=== PATIENT | male | born 2000 | race Caucasian/White ===

== ENCOUNTER 2020-06-29 15:32 | Emergency (ER) | payer OTHER, SELFPAY ==
--- NOTE | ~2020-06-29 | XR_ITS ---
EXAMINATION: XR wrist LT min 3V DATE: 06/29/2020 15:58 INDICATION: Lateral left wrist pain post fall TECHNIQUE: Posteroanterior, ulnar deviation, oblique, and lateral views of the left wrist were obtain ed. COMPARISON: none FINDINGS: 3 mm ulnar minus variance. Alignment is otherwise normal. No fracture. Joint spaces are normal. Soft tissues are unremarkable. IMPRESSION: 1. No acute osseous abnormality. Reviewed, dictated and finalized at location B.
[2020-06-29 15:40] VITALS: BP 153/83; PULSE 85; RESP 18; TEMP 36.6; O2SAT 100
--- NOTE | 2020-06-29 15:47 | ED.UPPEXIN ---
HPI - Extremity Injury (Upper) General Chief Complaint: Extremity Injury, Upper Stated Complaint: lt wrist injury Time Seen by Provider: 06/29/20 15:47 Source: patient and RN notes reviewed Mode of arrival: ambulatory Limitations: no limitations History of Present Illness HPI narrative: 19 year old male who presents to [facility] with complaints of injury to his left wrist which occurred on Monday.Patient states that he fell off the tailgate of his friend's truck and tried to break his fall with his left hand and now has pain to the radial aspect of his left wrist with mild swelling to radial side also. Patient states increase pain with movement of left hand, denies any tingling or numbness to left fingers with good left radial pulse. MD complaint: injury to: wrist (left) Onset (ago): day(s) (2 days) Other Extremity Injury: Left: wrist Other injuries: none Handedness: right Place: outdoors Severity: moderate Severity scale (1-10): 7 Relieving factors: rest Exacerbating factors: movement of extremity Context: fall Associated symptoms: denies other symptoms Treatments prior to arrival: NSAIDS Related Data Home Medications Medication Instructions Recorded Confirmed No Home Medications 06/29/20 06/29/20 Allergies Allergy/AdvReac Type Severity Reaction Status Date / Time No Known Allergies Allergy Mild Verified 06/29/20 15:45 Review of Systems Review of Systems: Narrative: CONSTITUTIONAL: Denies fever, chills, or sweats. EYES: Denies visual changes, redness, or discharge. ENT: Denies rhinorrhea, congestion, sore throat, or otalgia. CARDIOVASCULAR: Denies chest pain, palpitations, or edema. RESPIRATORY: Denies cough or dyspnea. GASTROINTESTINAL: Denies abdominal pain, nausea, vomiting, or diarrhea. GENITOURINARY: Denies dysuria or hematuria. SKIN: Denies rash or itching. MUSCULOSKELETAL: Denies back pain, positive for left wrist pain radial side joint pain, or myalgia. NEUROLOGIC: Denies headache, numbness, or weakness. PSYCHIATRIC: Denies anxiety or depression. All systems reviewed & are unremarkable except as noted in HPI and below PMFSH Past Medical History Medical History (Updated 06/30/20 @ 00:01 by Sandra Roe) History of strep sore throat Surgical History Surgical History H/O knee surgery Social History Social History (Updated 06/29/20 @ 16:05 by Chiqui Morales NP) Smoking status: Current some day smoker Tobacco type: cigarettes and e-cigarettes/vaping Alcohol intake: never Substance use: unknown Living arrangements: with roommate(s) Occupation/Education: student Additional occupation/education comments: floor installation Gender identity (if verbalized by the patient): Male Comments At time of signature, agree with nursing past medical, surgical, social history. There is no relevant family history pertinent to the presenting complaint Exam Narrative: Exam Narrative: GENERAL: Well-appearing, well-nourished, and in no acute distress. HEAD: Normocephalic, atraumatic. EYES: PERRLA and EOMI. ENT: Nares clear, no rhinorrhea or epistaxis. Mucous membranes moist. NECK: Supple. CHEST: Clear to auscultation. No respiratory distress.SAO2 100% on room air HEART: Regular rate and rhythm. No murmur heard. Normal peripheral pulses. ABDOMEN: Soft, nontender, nondistended, normal active bowel sounds. EXTREMITIES: Painful range of motion with mild edema radial side of left wrist, strong left radial pulse, nail beds dulce briskly. full ROM of fingers denies any tingling or numbness. SKIN: Warm, dry, no rash. NEURO: No focal deficits. Alert and oriented x3. Course Vital Signs Vital signs: Vital Signs Temperature 36.6 C 06/29/20 15:40 Pulse Rate 85 06/29/20 15:40 Respiratory Rate 18 06/29/20 15:40 Blood Pressure 153/83 H 06/29/20 15:40 Pulse Oximetry 100 06/29/20 15:40 Temperature 36.6 C 06/29/20 15
== END 2020-06-29 16:24 | disposition home or self-care (01) ==
PROVIDERS: Emergency Provider Registered Nurse; PCP Pediatrics
DX: S63.502A Unspecified sprain of left wrist, initial encounter (principal); S66.912A Strain of unspecified muscle, fascia and tendon at wrist and hand level, left hand, initial encounter; W17.89XA Other fall from one level to another, initial encounter; F17.210 Nicotine dependence, cigarettes, uncomplicated
CPT/HCPCS: 73110; 99213; G0463

== ENCOUNTER 2022-04-06 16:50 | Emergency (ER) | payer OTHER, SELFPAY ==
--- NOTE | ~2022-04-06 | XR_ITS ---
EXAMINATION: XR chest 2V Exam Date/Time: 04/06/2022 17:25 CDT HISTORY: chest pain SINCE LASTNIGHT, HX AFIB, SOB Comparison: None available. RESULT: Lines, tubes, and devices: None. Lungs and pleura: Clear. Cardiomediastinal silhouette: Normal cardiomediastinal silhouette. Other: No acute osseous or upper abdominal finding. IMPRESSION: No acute cardiopulmonary process. Reviewed, dictated and finalized at location K.
--- NOTE | 2022-04-06 16:55 | ECG_ITS ---
Measurements Intervals [place] Rate: 89 P: -5 ID: 135 QRS: 99 QRSD: 116 T: 26 QT: 348 QTc: 426 Interpretive Statements SINUS RHYTHM BORDERLINE RIGHT AXIS DEVIATION [QRS AXIS > 90] NONSPECIFIC ST AND T-WAVE CHANGE MODERATE INTRAVENTRICULAR CONDUCTION DELAY [110+ ms QRS DURATION] NO PREVIOUS ECG AVAILABLE FOR COMPARISON Electronically Signed On 04-06-2022 22:19:46 CDT by Sabiha Villarreal M.D.
[2022-04-06 16:59] VITALS: BP 159/104; PULSE 101; RESP 20; TEMP 36.9; O2SAT 100
[2022-04-06 17:13] LABS: Basophils Percent Auto 0.4 % (0.2-1.2); Eosinophils Percent Auto 0.2 % (0-4.4); Hematocrit 49.4 % (42.0-52.0); Hemoglobin 16.9 g/dL (14.0-18.0); Immature Granulocyte Absolute 0.05 K/mm3 (0.00-0.031); Immature Granulocyte Percent A 0.5 % (0-0.5); Lymphocytes Absolute Auto 1.88 K/mm3 (0.9-3.2); Lymphocytes Percent Auto 17.2 % (18.3-44.2); Mean Corpuscular HGB Conc 34.2 g/dl (32-36); Mean Corpuscular Hemoglobin 31.4 pg (26-34); Mean Corpuscular Volume 91.7 fl (80-100); Mean Platelet Volume 9.8 fl (7.4-10.4); Monocytes Absolute Auto 0.7 K/mm3 (0.1-0.6); Monocytes Percent Auto 6.6 % (2.6-8.5); Neutrophils Absolute Auto 8.2 K/mm3 (1.3-6.7); Neutrophils Percent Auto 75.1 % (45.5-73.1); Platelet Count Result 271 k/mm3 (150-375); Red Blood Count 5.39 M/mm3 (4.6-6.20); White Blood Count 10.9 K/mm3 (4.5-10.0)
[2022-04-06 17:26] LABS: Alanine Aminotransferase 29 U/L (6-50); Albumin Level 5.5 g/dL (3.5-5.1); Alkaline Phosphatase 95 U/L (38-126); Anion Gap 10 mmol/L (8-16); Aspartate Amino Transferase 33 U/L (17-59); Bilirubin,Total 1.7 mg/dL (0.2-1.3); Blood Urea Nitrogen 16 mg/dL (9-20); Calcium 9.5 mg/dL (8.4-10.2); Carbon Dioxide 24 mmol/L (22-30); Chloride 103 mmol/L (98-107); Estimated CRCL calculation 114 ml/min; Estimated Glomerular Filt Rate > 60; Glucose 125 mg/dL (65-110); INR 1.1; Lipase 61 U/L (23-300); Partial Thromboplastin Time 33.2 SECONDS (22.3-36.8); Potassium 3.9 mmol/L (3.4-5.0); Prothrombin Time 14.2 Seconds (11.1-14.7); Sodium 137 mmol/L (137-145)
[2022-04-06 17:36] LABS: Troponin I < 0.012 ng/mL (0.000-0.034)
--- NOTE | 2022-04-06 17:53 | ED.CHESTPAIN ---
HPI - Chest Pain General Chief Complaint: Chest Pain Stated Complaint: cp Time Seen by Provider: 04/06/22 17:21 Source: patient Mode of arrival: ambulatory Limitations: no limitations History of Present Illness HPI narrative: This is a 21-year-old male that presents to the emergency department for palpitations. Reports he had an episode last night where he felt like his heart was beating very hard and racing. He had another 1 again this morning in which he also felt short of breath. He also experienced some tingling in his hands and on his face. This prompted him to be seen today as he has history of atrial fibrillation when he was in high school. He saw specialist at [facility] at that time. He does not have a command and control officer now and is not on any medications currently. Denies fever, cough, or lower extremity edema. Related Data Home Medications Medication Instructions Recorded Confirmed No Home Medications 06/29/20 06/29/20 Allergies Allergy/AdvReac Type Severity Reaction Status Date / Time No Known Allergies Allergy Mild Verified 04/06/22 17:34 Review of Systems Review of Systems: CONSTITUTIONAL: Denies fever CARDIOVASCULAR: Reports chest pain, palpitations. Denies edema. RESPIRATORY: Reports dyspnea. All systems reviewed & are unremarkable except as noted in HPI and below PMFSH Past Medical History Medical History (Updated 04/06/22 @ 19:52 by Roma Mcdaniels PA-C) History of strep sore throat Surgical History Surgical History H/O knee surgery Social History Social History (Updated 06/29/20 @ 16:05 by Chiqui Morales NP) Smoking status: Current some day smoker Tobacco type: cigarettes and e-cigarettes/vaping Alcohol intake: never Substance use: unknown Additional occupation/education comments: floor installation Gender identity (if verbalized by the patient): Male Exam Narrative: GENERAL: Well-appearing, well-nourished, and in no acute distress. HEAD: Normocephalic, atraumatic. EYES: EOMI. CHEST: Clear to auscultation. No respiratory distress. No wheezes rales or rhonchi HEART: Regular rate and rhythm. No murmur heard. Normal peripheral pulses. EXTREMITIES: Normal range of motion. No edema. SKIN: Warm, dry, no rash. NEURO: No focal deficits. Alert and oriented x3. PSYCH: Normal mood and affect Course Consultations Consultation #1: Spoke with Dr. Martines about patient and workup who will follow up in clinic Date: 04/06/22 Time: 19:50 Vital Signs Vital signs: Vital Signs Temperature 98.4 F 04/06/22 16:59 Pulse Rate 101 H 04/06/22 16:59 Respiratory Rate 20 04/06/22 16:59 Blood Pressure 159/104 H 04/06/22 16:59 Pulse Oximetry 100 04/06/22 16:59 Oxygen Delivery Room Air 04/06/22 16:59 Temperature 98.4 F 04/06/22 16:59 Pulse Rate 77 04/06/22 20:04 Respiratory Rate 13 04/06/22 20:04 Blood Pressure 145/92 H 04/06/22 20:04 Pulse Oximetry 100 04/06/22 20:04 Oxygen Delivery Room Air 04/06/22 17:34 MDM - Chest Pain MDM Narrative Medical decision making narrative: Patient presents to the emergency department for episodes of palpitations experienced recently. Reportedly has history of atrial fibrillation for which she saw a command and control officer in [facility]. Has not had follow-up with a command and control officer in some time. Patient's vitals are stable. Patient has remained in sinus rhythm in the ED with heart rate largely in the 70s to 80s. He has been a little hypertensive with systolics in the 140s to 150s. Oxygen saturation has remained normal on room air. CBC with mild leukocytosis to 10.9. Metabolic panel without concerning findings. Lipase is normal. EKG without concerning ST changes and baseline troponin is negative. D-dimer is not elevated. Chest x-ray without acute cardiopulmonary abnormality. Spoke with Dr. Martines about patient and workup who will follow up in clin
[2022-04-06] MEDS: ASPIRIN 81 MG CHEWABLE TABLET 324 MG PO (17:56)
[2022-04-06 18:51] LABS: D Dimer < 0.27 ug/mL (<0.48)
[2022-04-06 20:04] VITALS: BP 145/92; PULSE 77; RESP 13; O2SAT 100
[2022-04-06 20:20] LABS: Troponin I < 0.012 ng/mL (0.000-0.034)
== END 2022-04-06 20:05 | disposition home or self-care (01) ==
PROVIDERS: Family Medicine; Physician Assistant; Emergency Provider General Practice; PCP Pediatrics
DX: R00.2 Palpitations (principal); F17.210 Nicotine dependence, cigarettes, uncomplicated; F17.290 Nicotine dependence, other tobacco product, uncomplicated; R94.31 Abnormal electrocardiogram [ECG] [EKG]
CPT/HCPCS: 36415; 71046; 80053; 83690; 84484; 85025; 85380; 85610; 85730; 93005; 99284; A9270

== ENCOUNTER 2023-01-14 10:01 | Emergency (ER) | payer OTHER, SELFPAY ==
[2023-01-14 10:10] VITALS: BP 148/91; PULSE 102; RESP 16; TEMP 37; O2SAT 99
--- NOTE | 2023-01-14 10:28 | ED.URI ---
HPI - URI/Sore Throat General Chief Complaint: Upper Respiratory Infection Stated Complaint: SWOLLEN GLANDS/TONSILS/BODY ACHES Time Seen by Provider: 01/14/23 10:29 History of Present Illness HPI Narrative: 22-year-old male presented for complaint of sore throat, swollen glands, body aches, and cough with subjective fever for about 3 days. Endorses painful swallow. he has not taken anything for symptoms. He denies shortness of breath, wheezing, nausea, vomiting, diarrhea. Reports sick contacts. Patient vapes. Related Data Allergies Allergy/AdvReac Type Severity Reaction Status Date / Time No Known Allergies Allergy Mild Verified 01/14/23 10:29 Review of Systems Review of Systems: ROS per HPI [facility] Past Medical History Medical History History of strep sore throat Surgical History Surgical History H/O knee surgery Social History Social History Smoking status: Current some day smoker Tobacco type: cigarettes and e-cigarettes/vaping Alcohol intake: never Substance use: unknown Living arrangements: with roommate(s) Occupation/Education: student Additional occupation/education comments: floor installation Gender identity (if verbalized by the patient): Male Exam Narrative: GENERAL: Ill-appearing, nontoxic no acute distress. EYES: conjunctivae clear ENT: Mucous membranes moist. TMs pearly steve with normal light reflex bilaterally; no tragal tenderness. Oropharynx erythematous Tonsils enlarged with exudate. No drooling, no hoarseness, no trismus, uvula midline. No tripod positioning, hot potato voice, or soft palate swelling. NECK: Supple. CHEST: Clear to auscultation, breath sounds equal. No respiratory distress, speaks in full sentences. HEART: Regular rate and rhythm. No murmur heard. SKIN: Warm, dry, no rash. NEURO: Alert and oriented x3. Course Course Emergency Course: Patient is aware of diagnosis, understands and agrees to treatment plan. Anticipatory guidance given. Patient agrees to follow-up as directed and is aware of reasons to seek care at the emergency department. Portions of this record may have been created with voice recognition software Level of Care: Express Care Visit Vital Signs Vital signs: Vital Signs Temperature 98.6 F 01/14/23 10:10 Pulse Rate 102 H 01/14/23 10:10 Respiratory Rate 16 01/14/23 10:10 Blood Pressure 148/91 H 01/14/23 10:10 Pulse Oximetry 99 01/14/23 10:10 Temperature 98.6 F 01/14/23 10:10 Pulse Rate 102 H 01/14/23 10:10 Respiratory Rate 16 01/14/23 10:10 Blood Pressure 148/91 H 01/14/23 10:10 Pulse Oximetry 99 01/14/23 10:10 MDM - URI/Sore Throat MDM Narrative Medical decision making narrative: strep result reviewed with pt.will treat at this time based on PE, cc, and known exposure. Advise supportive treatments. Patient is appropriate for outpatient treatment and follow-up. Differential Diagnosis Differential diagnosis: Likely upper respiratory infection, viral infection and pharyngitis Lab Data Labs: Strep Screen Presumptive Negative *(Reference Range: Negative)* [place] Screen Negative (Reference Range: Negative) Discharge Plan Discharge Clinical Impression: Acute tonsillitis Patient Disposition: Home, Self-Care Condition: Stable Instructions: Antibiotic Form, Strep Throat (ED) Additional Instructions: - Take the antibiotic as directed. Fever and sore throat typically resolve within one to three days. Most patients can return to work after 12 to 24 hours of antibiotic therapy, provided you are fever free and otherwise well. -Eat and drink things that are e
== END 2023-01-14 10:43 | disposition home or self-care (01) ==
PROVIDERS: Emergency Provider Nurse Practitioner Family
DX: J03.90 Acute tonsillitis, unspecified (principal); F17.210 Nicotine dependence, cigarettes, uncomplicated
CPT/HCPCS: 36416; 86308; 87081; 87880; 99213; G0463

== ENCOUNTER 2024-06-25 11:02 | Outpatient (CLI) | payer OTHER, SELFPAY ==
--- NOTE | ~2024-06-25 | CT_ITS ---
CT of the Abdomen and Pelvis: Indication: GI bleeding Technique: 2.5 mm axial scans were obtained through the abdomen and pelvis following intravenous adm inistration of 100 cc of Omnipaque 350. Dose reduction technique was used on this scan by utilizing a utomated exposure control and iterative reconstruction technique. The dose-length product (DLP) was 1 234.09 mGy-cm. Findings: Scans through the lung bases are unremarkable. The liver, spleen, pancreas, gallbladder, adrenals and kidneys are within normal limits. No evidence of aortic aneurysm. No lymphadenopathy. No bowel obstruction or bowel wall thickening. There is no evidence to suggest acute appendicitis. Images through the pelvis were performed. Urinary bladder unremarkable. No pelvic mass seen. No ascit es. Impression: No significant abnormalities seen. Reviewed, dictated and finalized at location . Impression: No significant abnormalities seen.
[2024-06-25 11:26] LABS: Basophils Absolute Auto 0.1 K/mm3 (0.0-0.1); Basophils Percent Auto 0.6 % (0.2-1.2); Eosinophils Absolute Auto 0.3 K/mm3 (0-0.3); Eosinophils Percent Auto 2.8 % (0-4.4); Hematocrit 46.5 % (42.0-52.0); Hemoglobin 15.6 g/dL (14.0-18.0); Immature Granulocyte Absolute 0.05 K/mm3 (0.00-0.031); Immature Granulocyte Percent A 0.6 % (0-0.5); Lymphocytes Absolute Auto 1.87 K/mm3 (0.9-3.2); Lymphocytes Percent Auto 21.2 % (18.3-44.2); Mean Corpuscular HGB Conc 33.5 g/dl (32-36); Mean Corpuscular Hemoglobin 31.4 pg (26-34); Mean Corpuscular Volume 93.6 fl (80-100); Mean Platelet Volume 9.2 fl (7.4-10.4); Monocytes Absolute Auto 0.8 K/mm3 (0.1-0.6); Monocytes Percent Auto 8.9 % (2.6-8.5); Neutrophils Absolute Auto 5.8 K/mm3 (1.3-6.7); Neutrophils Percent Auto 65.9 % (45.5-73.1); Platelet Count Result 258 k/mm3 (150-375); Red Blood Count 4.97 M/mm3 (4.6-6.20); Red Cell Distribution Width 12.3 % (11.5-14.5); White Blood Count 8.8 K/mm3 (4.5-10.0)
[2024-06-25 11:32] LABS: Add Urine Microscopic? YES; Appearance Urine Clear (Clear); Bacteria Urine None Seen /hpf; Bilirubin Urine Negative (Negative); Blood Urine Negative (Negative); Color Urine Yellow (Yellow); Glucose Urine UA Negative (Negative); Ketones Urine Trace mg/dL (Negative); Leukocyte Esterase Ur Negative LEU/UL (Negative); Nitrate Urine Negative (Negative); Non Pathogenic Casts 0-2; Protein Urine Trace mg/dL (Negative); RBC Urine 0-2 /hpf (0-2); Specific Grav Ur 1.027 (1.001-1.035); Squamous Epithelial Cell Urine None Seen /hpf (Few); WBC Urine 0-5 /hpf (0-3); pH Urine 6.5 (5.0-9.0)
[2024-06-25 11:43] LABS: Estimated Glomerular Filt Rate > 60
[2024-06-25 11:46] LABS: Alanine Aminotransferase 37 U/L (6-50); Albumin Level 4.4 g/dL (3.5-5.1); Alkaline Phosphatase 71 U/L (38-126); Anion Gap 9 mmol/L (4-12); Aspartate Amino Transferase 32 U/L (17-59); Bilirubin,Total 0.4 mg/dL (0.2-1.3); Blood Urea Nitrogen 13 mg/dL (9-20); Calcium 8.7 mg/dL (8.4-10.2); Carbon Dioxide 30 mmol/L (22-30); Chloride 96 mmol/L (98-107); Cholesterol 179 mg/dL (0-200); Estimated Glomerular Filt Rate > 60; Glucose 107 mg/dL (65-110); HDL Direct 60 mg/dL; Potassium 4.1 mmol/L (3.4-5.0); Sodium 135 mmol/L (137-145); Triglycerides 109 mg/dL (<150)
[2024-06-25 11:51] LABS: Hemoglobin A1C 5.2 % (<5.7)
[2024-06-25 11:57] LABS: LDL Cholesterol Direct 89 mg/dL
== END 2024-06-25 11:03 | disposition home or self-care (01) ==
PROVIDERS: Visit Provider Internal Medicine
DX: R10.9 Unspecified abdominal pain (principal); K62.5 Hemorrhage of anus and rectum; I10 Essential (primary) hypertension; Z79.899 Other long term (current) drug therapy; Z13.220 Encounter for screening for lipoid disorders; Z13.1 Encounter for screening for diabetes mellitus; Z13.29 Encounter for screening for other suspected endocrine disorder; Z87.898 Personal history of other specified conditions; Z80.0 Family history of malignant neoplasm of digestive organs
CPT/HCPCS: 36415; 74177; 80053; 80061; 81001; 83036; 84439; 84443; 85025; Q9967

== ENCOUNTER 2024-07-15 02:49 | Day surgery (SDC) | payer OTHER, SELFPAY ==
--- NOTE | 2024-07-11 10:10 | PC.NURSE ---
8 attemtpts have been made to contact pt. with voicemail left on his # and mothers #, spoke with father 07/10 and 07/11 regarding appt. he will contact son again today and request he call us. He was informed to let pt. know that if he does not contact us by 3pm today his procedure will be canceled and he will need to resched. with the office. This was also left in the messages on voicemail to patient and mother.
--- NOTE | 2024-07-12 08:25 | PC.NURSE ---
Addendum entered by Wendy Garcia RN 07/12/24 09:32: Pt returned call to a different number and left a message at 1430 07/11/2024 to do interview. I called him this am and completed interview and patient will be here on Monday07/15/24 at 1230/1400. Original Note: 07/11/2024 1030 Talked to dad 07/10 and 07/11 and he said he would give him the message- he said there is no reason he is not calling us back other than thats just how he is. I told him to let him know that if I did not hear from him by 3 I would cancel him and he would need to reschedule through the office if he wants to have it done and if he reschedules he is required to call us and do his interview. 07/11/2024 1600 Pt did not respond to messages today, procedure is canceled and pt will need to call office to resched. Office notified.
[2024-07-15 12:43] VITALS: BP 151/101; PULSE 69; RESP 18; TEMP 36.3; O2SAT 100; BMI 28.3
[2024-07-15] MEDS: LACTATED RINGERS 1,000 ML 150 ML IV CONT (12:52)
--- NOTE | 2024-07-15 12:59 | P.PNAN_ITS ---
Anes - Initial Pre Proc Eval Procedure: Operation Date: 07/15/24 14:00 Proposed Procedures p Colonoscopy - Alfred Collins MD Date/Time: 07/15/24 12:59 Surgeon: Alfred Collins MD Pre Op Diagnosis: hemorrhage of anus, abd pain, family hx of cancer Patient Data Age: 23 Gender: M Height: 2.06 m Weight: 120 kg Last Vital Signs Temp 97.3 F L 07/15/24 12:43 Pulse 69 07/15/24 12:43 Resp 18 07/15/24 12:43 BP 151/101 H 07/15/24 12:43 Pulse Ox 100 07/15/24 12:43 O2 Del Method Room Air 07/15/24 12:43 Allergies Allergy/AdvReac Type Severity Reaction Status Date / Time No Known Allergies Allergy Mild Verified 07/15/24 12:41 Home Medications Medication Instructions Recorded Confirmed Type No Home Medications 06/25/24 07/15/24 History Patient hx anesthesia problems: none Family hx anesthesia problems: none Results Review: All pre-operative results and documents have been reviewed as part of the pre- operative evaluation. [facility] Past Medical History Medical History Benign essential hypertension BMI 29.0-29.9,adult BRBPR (bright red blood per rectum) Encounter to establish care FHx: colon cancer History of strep sore throat Hx of atrial fibrillation, no current medication Surgical History Surgical History H/O knee surgery Social History Social History Smoking packs per day: 0.5 Smoking cigarettes per day: 10.0 Years smoked: 9 Smoking pack-years: 4.50 Smoking status: Current every day smoker Tobacco type: cigarettes Alcohol intake: current Drinks per week: 20 Alcohol use details: BEERS ( AT MOST) Substance use: former Substance use type: opiates Living arrangements: alone Occupation/Education: student Additional occupation/education comments: floor installation Gender identity (if verbalized by the patient): Male Spiritual care concerns: No Anes - Eval Final PreProcedure Day of Procedure 07/15/24 12:59 Patient weight: normal Heart: regular rate and rhythm Lungs: clear to auscultation Airway: Mallampati scale class II Neurological: alert and oriented Last oral intake: >/= 8 hours ASA classification: II Emergent: no Anesthetic plan: proceed Anesthesia type and monitoring: general GIVS and standard monitoring Results Review: All pre-operative results and documents have been reviewed as part of the pre- operative evaluation. Smoker, 1/2 ppd, most recently 5 am, vapes daily. Informed Consent: The patient's anesthetic plan and its attendant risks and benefits were discussed with the patient/family/POA. Questions were solicited and answers provided to the satisfaction of the patient/family/POA.
--- NOTE | 2024-07-15 13:49 | PM.HPGS ---
History of Present Illness History of Present Illness Consent: Risks, benefits, and alternatives have been discussed and questions answered. Patient agrees to proceed with procedure. Chief complaint: hemorrhage of anus, abd pain, family hx of cancer Narrative: David Powell is a 23 year old male with episode of blood in stool, never had colonoscopy Review of Systems Review of Systems: All systems reviewed & are unremarkable except as noted in HPI and below PMFSH Past Medical History Medical History Benign essential hypertension BMI 29.0-29.9,adult BRBPR (bright red blood per rectum) Encounter to establish care FHx: colon cancer History of strep sore throat Hx of atrial fibrillation, no current medication Surgical History Surgical History H/O knee surgery Social History Social History Smoking packs per day: 0.5 Smoking cigarettes per day: 10.0 Years smoked: 9 Smoking pack-years: 4.50 Smoking status: Current every day smoker Tobacco type: cigarettes Alcohol intake: current Drinks per week: 20 Alcohol use details: BEERS ( AT MOST) Substance use: former Substance use type: opiates Living arrangements: alone Occupation/Education: student Additional occupation/education comments: floor installation Gender identity (if verbalized by the patient): Male Spiritual care concerns: No Meds Home Medications and Allergies Home Medications Medication Instructions Recorded Confirmed Type No Home Medications 06/25/24 07/15/24 History Allergies Allergy/AdvReac Type Severity Reaction Status Date / Time No Known Allergies Allergy Mild Verified 07/15/24 12:41 Vital Signs Vital Signs - 24 hr 07/15/24 12:43 Temperature 97.3 F L Pulse Rate 69 Respiratory Rate 18 Blood Pressure 151/101 H Pulse Oximetry 100 Oxygen Delivery Room Air Exam Const: General: comfortable and no acute distress HENMT: Face/Nose/Sinus: Normal nares present Eyes: General: appearance normal, both eyes and all related structures Neck: Neck: no JVD Resp: Auscultation: clear to auscultation bilaterally Cardio: Rate: regular rate Rhythm: regular rhythm GI: Inspection: non-distended GI Palp: Yes Soft to palpation Skin: General skin exam: normal color Neuro: General: gait normal Speech: normal speech Extrem: General: normal to inspection Psych: Mental Status: mental status grossly normal Assessment and Plan Assessment and plan (1) BRBPR (bright red blood per rectum): Code(s): K62.5 - Hemorrhage of anus and rectum Status: Acute Assessment and Plan: colonoscopy (2) FHx: colon cancer: Code(s): Z80.0 - Family history of malignant neoplasm of digestive organs Status: Acute
[2024-07-15 14:05] VITALS: BP 128/95; PULSE 81; RESP 18; O2SAT 95
[2024-07-15 14:15] VITALS: BP 147/102; PULSE 73; RESP 16; O2SAT 100
[2024-07-15 14:25] VITALS: BP 144/99; PULSE 70; RESP 18; O2SAT 100
== END 2024-07-15 14:31 | disposition home or self-care (01) ==
PROVIDERS: PCP Internal Medicine; Visit Provider Internal Medicine Gastroenterology
PROC: 0DJD8ZZ Inspection of Lower Intestinal Tract, Via Natural or Artificial Opening Endoscopic (ICD-10-PCS; CPT 45378; principal; 2024-07-15 14:00)
DX: K64.8 Other hemorrhoids (principal); I10 Essential (primary) hypertension; F17.210 Nicotine dependence, cigarettes, uncomplicated; Z98.890 Other specified postprocedural states; Z86.79 Personal history of other diseases of the circulatory system; Z80.0 Family history of malignant neoplasm of digestive organs
CPT/HCPCS: 45378; J2704; J7120